=== PATIENT | female | born 1945 | race Caucasian/White ===

== ENCOUNTER 2017-01-05 09:39 | Emergency (ER) | payer OTHER ==
--- NOTE | 2017-01-05 09:43 | EDPHY ---
H & P Time Seen by Provider: 01/05/17 09:40 HPI/ROS: CHIEF COMPLAINT: Epigastric pain HISTORY OF PRESENT ILLNESS: The patient presents to the ED for evaluation of epigastric pain. The patient reports her symptoms began last night. It kept her up most of the evening. She reports associated symptoms of chills nausea and 1 episode of retching. The patient did have 1 episode of loose stool this morning. The patient denies prior history of cardiac disease. She denies history of exertional chest pain or shortness of breath. She denies asymmetric calf pain or swelling. The patient has no risk factors for cardiac disease. Her father did have a myocardial infarction in his late 60s. Patient currently is feeling better. She continues to complain of a vague discomfort across her epigastrium and lower chest. REVIEW OF SYSTEMS: A comprehensive 10 point review of systems is otherwise negative aside from elements mentioned in the history of present illness. Source: Patient Exam Limitations: No limitations - Family History Significant Family History: Heart disease - Social History Smoking Status: Never smoked - Physical Exam Exam: General Appearance: Alert, no distress Eyes: Pupils equal and round no pallor or injection ENT, Mouth: Mucous membranes moist Respiratory: There are no retractions, lungs are clear to auscultation Cardiovascular: Regular rate and rhythm Gastrointestinal: Minimal tenderness to deep palpation noted in the left upper quadrant Neurological: A&O, normal motor function, normal sensory exam, normal cranial nerves Skin: Warm and dry, no rashes Musculoskeletal: Neck is supple nontender Extremities: symmetrical, full range of motion Constitutional: Initial Vital Signs Temperature (C) 37.1 C 01/05/17 09:41 Heart Rate 91 01/05/17 09:41 Respiratory Rate 16 01/05/17 09:41 Blood Pressure 136/81 H 01/05/17 09:41 O2 Sat (%) 94 01/05/17 09:41 O2 Delivery Mode Room Air Allergies/Adverse Reactions: morphine Allergy (Verified 01/05/17 09:45) Home Medications: Medication Instructions Recorded Ambien 01/05/17 Lisinopril 01/05/17 Medical Decision Making - Diagnostics EKG Interpretation: EKG: Complete interpretation has been separately recorded in the [employer] archive. Summary impression: Sinus rhythm, rate 88 Imaging Results: Imaging Impressions Chest X-Ray 01/05/17 09:56 Impression: No acute abnormality. ED Course/Re-evaluation: The patient presents to the ED for evaluation of upper abdominal pain and lower chest pain. The patient experienced symptoms throughout the evening. She presented to the ED with essentially improved and nearly resolved symptoms. She had minimal tenderness to palpation in her left upper quadrant. Her EKG was normal. The patient's troponin was normal. The patient did have normal liver function test and a normal lipase. Patient's chest x-ray demonstrates no evidence of acute disease. The patient was given a GI cocktail with complete resolution of her symptoms. I re-evaluated the patient at 11:40 a.m.. She is in no acute distress. I had reviewed her workup in the ED today. At this point time I feel she most likely was experiencing a bout of gastritis characterized by epigastric pain and vomiting. The patient has no risk factors for coronary artery disease. I have told her that my suspicion for this is low. I have told her that we cannot fully exclude this disease and would be important for us to see her back here for any recurrent chest pain, shortness of breath or worsening symptoms. The patient is comfortable following up with her primary care provider. She will return to the ED for worsening symptoms or other concerns. She is given the contact number of our on-call tourist camp attendant for consideration of a treadmill stress test for further risk stratification. Differential Diagnosis: Differential diagnosis considered includes gastritis, pancreatitis, acute coronary syndrome, viral syndrome, hepatitis - Data Points Laboratory Results: Laboratory Results 01/05/17 09:55 01/05/17 09:55 01/05/17 01/05/17 09:55 09:55 WBC 7.15 10^3/uL 10^3/uL (3.80-9.50) RBC 4.62 10^6/uL 10^6/uL (4.18-5.33) Hgb 13.7 g/dL g/dL (12.6-16.3) Hct 41.1 % % (38.0-47.0) MCV 89.0 fL fL (81.5-99.8) MCH 29.7 pg pg (27.9-34.1) MCHC 33.3 g/dL g/dL (32.4-36.7) RDW 13.2 % % (11.5-15.2) Plt Count 239 10^3/uL 10^3/uL (150-400) MPV 9.9 fL fL (8.7-11.7) Neut % (Auto) 87.3 % H % (39.3-74.2) Lymph % (Auto) 6.7 % L % (15.0-45.0) [place] % (Auto) 4.8 % % (4.5-13.0) Eos % (Auto) 0.6 % % (0.6-7.6) Baso % (Auto) 0.3 % % (0.3-1.7) Nucleat RBC Rel Count 0.0 % % (0.0-0.2) Absolute Neuts (auto) 6.25 10^3/uL 10^3/uL (1.70-6.50) Absolute Lymphs (auto) 0.48 10^3/uL L 10^3/uL (1.00-3.00) Absolute Monos (auto) 0.34 10^3/uL 10^3/uL (0.30-0.80) Absolute Eos (auto) 0.04 10^3/uL 10^3/uL (0.03-0.40) Absolute Basos (auto) 0.02 10^3/uL 10^3/uL (0.02-0.10) Absolute Nucleated RBC 0.00 10^3/uL 10^3/uL (0-0.01) Immature Gran % 0.3 % % (0.0-1.1) Immature Gran # 0.02 10^3/uL 10^3/uL (0.00-0.10) Sodium 143 mEq/L mEq/L (134-144) Potassium 3.6 mEq/L mEq/L (3.5-5.2) Chloride 107 mEq/L mEq/L (97-110) Carbon Dioxide 26 mEq/l mEq/l (22-31) Anion Gap 10 mEq/L mEq/L (8-16) BUN 16 mg/dL mg/dL (7-23) Creatinine 1.1 mg/dL H mg/dL (0.6-1.0) Estimated GFR 49 Glucose 119 mg/dL H mg/dL (70-100) Calcium 9.2 mg/dL mg/dL (8.5-10.4) Total Bilirubin 1.0 mg/dL mg/dL (0.1-1.4) Conjugated Bilirubin 0.3 mg/dL mg/dL (0.0-0.5) Unconjugated Bilirubin 0.7 mg/dL mg/dL (0.0-1.1) AST 23 IU/L IU/L (14-46) ALT 32 IU/L IU/L (9-52) Alkaline Phosphatase 77 IU/L IU/L (38-126) Troponin I < 0.012 ng/mL ng/mL (0-0.034) Total Protein 7.5 g/dL g/dL (6.3-8.2) Albumin 4.4 g/dL g/dL (3.5-5.0) Lipase 42.0 IU/L IU/L (23-300) Medications Given: Discontinued Medications Al Hydroxide/Mg Hydroxide (Maalox Susp) 30 ml PO ONCE ONE Stop: 01/05/17 11:10 Last Admin: 01/05/17 11:23 Dose: 30 ml Hyoscyamine Sulfate (Levsin, Hyomax-Sl) 0.25 mg PO ONCE ONE Stop: 01/05/17 11:10 Last Admin: 01/05/17 11:23 Dose: 0.25 mg Lidocaine (Lidocaine 2% Viscous) 15 ml PO ONCE ONE Stop: 01/05/17 11:10 Last Admin: 01/05/17 11:23 Dose: 15 ml Departure - Departure Disposition: Home, Routine, Self-Care Clinical Impression: Acute epigastric pain Condition: Good Instructions: Abdominal Pain (ED), Chest Pain (ED) Additional Instructions: 1. Based upon the testing done in the Emergency Department today we see no evidence of a heart attack. 2. We are unable to fully exclude coronary artery disease based upon the testing available in the Emergency Department. 3. For this reason, we would like you to be seen by cardiology for consideration of additional testing within the next 3 days. 4. Please contact the tourist camp attendant you have been referred to schedule this appointment as soon as possible. Their offices are typically open from 8:30am- 5pm M-F. 5. Please return to the Emergency Department immediately for any recurrent chest pain, difficulty breathing or other concerns. Referrals: KATIE ROBERTS [Primary Care Provider] - As per Instructions Hayder Oquendo MD [Medical Doctor] - As per Instructions
--- NOTE | 2017-01-05 09:54 | CPEKG ---
Heart Rate: 88 RR Interval: 682 P-R Interval: 132 QRSD Interval: 78 QT Interval: 356 QTC Interval: 431 P [place]: 37 QRS [place]: 44 T Wave [place]: 17 EKG Severity - NORMAL ECG - EKG Impression: SINUS RHYTHM Electronically Signed By: Stalin Graf 05-Jan-2017 13:20:20
[2017-01-05 10:05] VITALS: RESP 18
[2017-01-05 10:11] LABS: % IMMATURE GRANULYOCYTES 0.3 % (0.0-1.1); ABSOLUTE IMMATURE GRANULOCYTES 0.02 10^3/uL (0.00-0.10); ADD DIFF? NO; ADD MORPH? NO; ADD SCAN? NO; ATYPICAL LYMPHOCYTE FLAG 0 (0-99); FRAGMENT RBC FLAG 10 (0-99); HEMATOCRIT 41.1 % (38.0-47.0); HEMOGLOBIN 13.7 g/dL (12.6-16.3); LEFT SHIFT FLG 0 (0-99); LIPEMIA HEMOLYSIS FLAG 80 (0-99); MEAN CELL HEMOGLOBIN 29.7 pg (27.9-34.1); MEAN CELL HEMOGLOBIN CONCENTR. 33.3 g/dL (32.4-36.7); MEAN PLATELET VOLUME 9.9 fL (8.7-11.7); PLATELET CLUMPS FLAG 20 (0-99); PLATELET COUNT 239 10^3/uL (150-400); RED BLOOD CELL COUNT 4.62 10^6/uL (4.18-5.33); RED CELL DISTRIBUTION WIDTH 13.2 % (11.5-15.2)
[2017-01-05 10:26] LABS: ALANINE AMINOTRANSFERASE 32 IU/L (9-52); ALBUMIN 4.4 g/dL (3.5-5.0); ALKALINE PHOSPHATASE 77 IU/L (38-126); ANION GAP 10 mEq/L (8-16); ASPARTATE AMINOTRANSFERASE 23 IU/L (14-46); BILIRUBIN-CONJUGATED 0.3 mg/dL (0.0-0.5); BILIRUBIN-UNCONJUGATED 0.7 mg/dL (0.0-1.1); CALCIUM 9.2 mg/dL (8.5-10.4); CARBON DIOXIDE 26 mEq/l (22-31); CHLORIDE 107 mEq/L (97-110); CREATININE 1.1 mg/dL (0.6-1.0); GLOMERULAR FILTRATION RATE 49; GLUCOSE 119 mg/dL (70-100); POTASSIUM 3.6 mEq/L (3.5-5.2); SODIUM 143 mEq/L (134-144); TOTAL PROTEIN 7.5 g/dL (6.3-8.2)
[2017-01-05 10:36] LABS: TROPONIN I < 0.012 ng/mL (0-0.034)
[2017-01-05] MEDS ORDERED: HYOSCYAMINE SULFATE 0.125 MG TAB PO ONE (11:09)
[2017-01-05] MEDS ORDERED: MAG HYDROX/AL HYDROX/SIMETH 30 ML UDCUP PO ONE (11:09)
[2017-01-05] MEDS ORDERED: LIDOCAINE 2% VISCOUS 15 ML UDCUP PO ONE (11:09)
[2017-01-05 11:42] VITALS: BP 119/73; PULSE 78; TEMP 98.2; O2SAT 95
== END 2017-01-05 11:56 | disposition home or self-care (01) ==
DX: R10.13 Epigastric pain (principal)

== ENCOUNTER → 2017-01-29 | Outpatient (CLI) | payer OTHER | LOC: FIMAGING 14:30 | PROVIDERS: ATTEND Physician Assistant | DX: Z12.31 Encounter for screening mammogram for malignant neoplasm of breast (principal) | CPT/HCPCS: G0202 ==